=== PATIENT | male | born 1965 | race Caucasian/White ===

== ENCOUNTER 2019-12-10 21:50 | Emergency (ER) | payer BC ==
[~2019-12-10] VITALS: Ht 182.9 cm; Wt 111.1 kg
[2019-12-10] MEDS ORDERED: SODIUM CHLORIDE 0.9% 1000ML 1,000 ML IV ONE (22:30)
[2019-12-10] MEDS ORDERED: CEFTRIAXONE SOD 1 GM/NS 50 ML 50 ML IV ONE (22:30)
[2019-12-10 22:42] LABS: BILIRUBIN,URINE NEGATIVE (NEGATIVE); CLARITY,URINE CLOUDY (CLEAR); COLOR,URINE YELLOW (YELLOW); KETONES,URINE NEGATIVE (NEGATIVE); LEUKOCYTE ESTERASE ,URINE SMALL (NEGATIVE); NITRITE,URINE POSITIVE (NEGATIVE); PROTEIN,URINE DIPSTICK NEGATIVE (NEGATIVE); URINE UROBILINOGEN 0.2 mg/dL (0.2 - 1)
[2019-12-10 22:47] LABS: BACTERIA,URINE MANY /HPF; EPITHELIAL CELLS,URINE FEW /LPF; RBC,URINE 0-5 /HPF (0-5); WBC,URINE (MAN) 21-50 /HPF (0-5)
[2019-12-10 22:56] LABS: BASOPHILS % 0.3 % (0.0-1.0); EOSINOPHILS % 0.2 % (0.0-6.0); HEMATOCRIT 41.8 % (38.2-49.6); HEMOGLOBIN 14.2 g/dL (14.0-18.0); LYMPHOCYTES # (AUTO) 1.6 (1.0-3.2); LYMPHOCYTES % 10.8 % (18.0-39.1); MEAN CORPUSCULAR HEMOGLOBIN 29.8 pg (28-32); MEAN CORPUSCULAR VOLUME 87.6 fL (81-99); MONOCYTES # (AUTO) 1.6 (0.2-0.8); MONOCYTES % 10.8 % (4.4-11.3); NEUTROPHILS # (AUTO) 11.6 (2.1-6.9); NEUTROPHILS % 77.6 % (38.7-80.0); PLATELET COUNT 185 x10e3/uL (140-360); RED BLOOD COUNT 4.77 x10e6/uL (4.3-5.7); RED CELL DISTRIBUTION WIDTH 13.2 % (11.7-14.4)
--- NOTE | 2019-12-10 23:04 | Emergency Department Note ---
History of Present Illnes History of Present Illness Chief Complaint: Genitourinary History of Present Illness This is a 54 year old male with left testicular pain since falling and landing on left testicle this am, pt also now with dysuria and had a temp at home of 101. pt told to come to er by dr betts for evaluation . Historian: Patient Arrival Mode: Car Onset (how long ago): hour(s) (12) Location: left testicle Quality: pain Severity: moderate Onset quality: sudden Duration (how long): hour(s) (12) Timing of current episode: constant Progression: worsening Chronicity: new Context: Reports trauma/injury (as above) Relieving factors: none Exacerbating factors: none Associated symptoms: Reports denies other symptoms Past Medical/Family History Physician Review I have reviewed the patient's past medical and family history. Any updates have been documented here. Past Medical History Recent Fever: No Clinical Suspicion of Infectio: No New/Unexplained Change in Ment: No Social History Smoking Cessation: Never Smoker Alcohol Use: None Any Illegal Drug Use: No Family History Family history of heart diseas: No Other Last Tetanus: UNK Review of Systems Review of Systems Constitutional: Reports no symptoms EENTM: Reports no symptoms Cardiovascular: Reports no symptoms Respiratory: Reports no symptoms Gastrointestinal: Reports no symptoms Genitourinary: Reports as per HPI Musculoskeletal: Reports no symptoms Integumentary: Reports no symptoms Neurological: Reports no symptoms Psychological: Reports no symptoms Endocrine: Reports no symptoms Hematological/Lymphatic: Reports no symptoms Physical Exam Related Data Allergies: Coded Allergies: No Known Allergies (Unverified , 04/06/13) Triage Vital Signs Vital Signs Date Time Temp Pulse Resp B/P (MAP) Pulse Ox O2 Delivery O2 Flow Rate FiO2 12/10/19 22:15 99.6 104 20 165/84 97 Room Air Vital signs reviewed: Yes Physical Exam CONSTITUTIONAL Constitutional: Present well-developed, Present well-nourished; Absent distressed HENT HENT: Present normocephalic, Present atraumatic, Present oropharynx clear/moist, Present nose normal HENT L/R: Present left ext ear normal, Present right ext ear normal EYES Eyes: Reports PERRL, Reports conjunctivae normal NECK Neck: Present ROM normal PULMONARY Pulmonary: Present effort normal, Present breath sounds normal CARDIOVASCULAR Cardiovascular: Present regular rhythm, Present heart sounds normal, Present capillary refill normal, Present normal rate GASTROINTESTINAL Abdominal: Present soft, Present nontender, Present bowel sounds normal GENITOURINARY Genitourinary: Present penis normal, Present other (left tesicle tenderness, erythema to scrotum) SKIN Skin: Present warm, Present dry MUSCULOSKELETAL Musculoskeletal: Present ROM normal NEUROLOGICAL Neurological: Present alert, Present oriented x 3, Present no gross motor or sensory deficits PSYCHOLOGICAL Psychological: Present mood/affect normal, Present judgement normal Results Laboratory Laboratory Laboratory Tests Test 12/10/19 22:36 12/10/19 22:15 White Blood Count 14.90 x10e3/uL (4.8-10.8) Red Blood Count 4.77 x10e6/uL (4.3-5.7) Hemoglobin 14.2 g/dL (14.0-18.0) Hematocrit 41.8 % (38.2-49.6) Mean Corpuscular Volume 87.6 fL (81-99) Mean Corpuscular Hemoglobin 29.8 pg (28-32) Mean Corpuscular Hemoglobin Concent 34.0 g/dL (31-35) Red Cell Distribution Width 13.2 % (11.7-14.4) Platelet Count 185 x10e3/uL (140-360) Neutrophils (%) (Auto) 77.6 % (38.7-80.0) Lymphocytes (%) (Auto) 10.8 % (18.0-39.1) Monocytes (%) (Auto) 10.8 % (4.4-11.3) Eosinophils (%) (Auto) 0.2 % (0.0-6.0) Basophils (%) (Auto) 0.3 % (0.0-1.0) Neutrophils # (Auto) 11.6 (2.1-6.9) Lymphocytes # (Auto) 1.6 (1.0-3.2) Monocytes # (Auto) 1.6 (0.2-0.8) Eosinophils # (Auto) 0.0 (0.0-0.4) Basophils # (Auto) 0.0 (0.0-0.1) Absolute Immature Granulocyte (auto 0.04 x10e3/uL (0-0.1) Sodium Level 139 mmol/L (136-145) Potassium Level 4.0 mmol/L (3.5-5.1) Chloride Level 104 mmol/L (98-107) Carbon Dioxide Level 25 mmol/L (22-29) Anion Gap 14.0 mmol/L (8-16) Blood Urea Nitrogen 18 mg/dL (7-26) Creatinine 1.13 mg/dL (0.72-1.25) Estimat Glomerular Filtration Rate > 60 ML/MIN (60-) BUN/Creatinine Ratio 16 (6-25) Glucose Level 112 mg/dL (74-118) Lactic Acid Level 1.4 mmol/L (0.5-2.0) Calcium Level 9.1 mg/dL (8.4-10.2) Total Bilirubin 0.8 mg/dL (0.2-1.2) Aspartate Amino Transf (AST/SGOT) 17 IU/L (5-34) Alanine Aminotransferase (ALT/SGPT) 12 IU/L (0-55) Alkaline Phosphatase 60 IU/L (40-150) Total Protein 6.8 g/dL (6.5-8.1) Albumin 3.8 g/dL (3.5-5.0) Globulin 3.0 g/dL (2.3-3.5) Albumin/Globulin Ratio 1.3 (0.8-2.0) Urine Color Yellow (YELLOW) Urine Clarity Cloudy (CLEAR) Urine pH 7.5 (5 - 7) Urine Specific [place] 1.025 (1.010-1.025) Urine Protein Negative (NEGATIVE) Urine Glucose (UA) Negative (NEGATIVE) Urine Ketones Negative (NEGATIVE) Urine Blood Negative (NEGATIVE) Urine Nitrite Positive (NEGATIVE) Urine Bilirubin Negative (NEGATIVE) Urine Urobilinogen 0.2 mg/dL (0.2 - 1) Urine Leukocyte Esterase Small (NEGATIVE) Urine RBC 0-5 /HPF (0-5) Urine WBC 21-50 /HPF (0-5) Urine Epithelial Cells Few /LPF (NONE) Urine Bacteria Many /HPF (NONE) Laboratory Tests Test 12/10/19 22:36 12/10/19 22:15 Urine Color Yellow (YELLOW) Urine Clarity Cloudy (CLEAR) Urine pH 7.5 (5 - 7) Urine Specific [place] 1.025 (1.010-1.025) Urine Protein Negative (NEGATIVE) Urine Glucose (UA) Negative (NEGATIVE) Urine Ketones Negative (NEGATIVE) Urine Blood Negative (NEGATIVE) Urine Nitrite Positive (NEGATIVE) Urine Bilirubin Negative (NEGATIVE) Urine Urobilinogen 0.2 mg/dL (0.2 - 1) Urine Leukocyte Esterase Small (NEGATIVE) Urine RBC 0-5 /HPF (0-5) Urine WBC 21-50 /HPF (0-5) Urine Epithelial Cells Few /LPF (NONE) Urine Bacteria Many /HPF (NONE) Lab results reviewed: Yes Imaging Imaging results reviewed: Yes Impressions Procedure: [id number] CT/CT ABDOMEN/PELVIS WOW Exam Date: Exam Time: REPORT STATUS: Signed EXAM: CT Abdomen and Pelvis WITHOUT and WITH contrast INDICATION: dysuria, scrotal pain, go all the way to bottom of scrotum COMPARISON: CT 04/06/2013.. TECHNIQUE: Abdomen and pelvis were scanned utilizing a multidetector helical scanner from the lung base to the pubic symphysis before and after administration of IV contrast. Coronal and sagittal reformations were obtained. Routine protocol was performed. Pre and postcontrast imaging was performed. IV CONTRAST: 150 mL of Omnipaque 300 ORAL CONTRAST: None COMPLICATIONS: None FINDINGS: LINES and TUBES: None. LOWER THORAX: Unremarkable HEPATOBILIARY: There is a too small to characterize hypodensity in the right lobe, likely benign. No biliary ductal dilation. GALLBLADDER: No radio-opaque stones or sludge. No wall thickening. SPLEEN: No splenomegaly. PANCREAS: No focal masses or ductal dilatation. ADRENALS: No adrenal nodules KIDNEYS/URETERS: Kidneys enhance symmetrically. No hydronephrosis. No cystic or solid mass lesions. No stones. GI TRACT: No abnormal distention, wall thickening, or evidence of bowel obstruction. Appendix is normal. PELVIC ORGANS/BLADDER: No evidence of hematoma or contrast extravasation when comparing pre and postcontrast imaging. No intrascrotal gas. Small left hydrocele. Serpiginous vessels, which are likely partially imaged on study from 2013, possible left varicocele. Limited evaluation of the testicles. LYMPH NODES: No lymphadenopathy. VESSELS: Unremarkable. PERITONEUM / RETROPERITONEUM: No free air or fluid. BONES: Unremarkable. SOFT TISSUES: 2.8 x 3.6 x 5.0 cm cystic lesion in the subcutaneous fat of the midline back abutting the skin surface at the level of L1. IMPRESSION: 1. CT has limited sensitivity for scrotal pathology. Limited evaluation of the testicles. No evidence of hematoma or contrast extravasation when comparing pre and postcontrast imaging. No intrascrotal gas. Small left hydrocele. Consider testicular ultrasound for further evaluation if clinically warranted. 2. 5.0 cm subdermal cystic lesion at the midline back at the level of L1. Indeterminate lesion, possible sebaceous cyst. Correlate with physical exam. Signed by: Lenard Lee MD on 12/11/2019 12:32 AM Dictated By: LENARD LEE MD Transcribed By: DAMIAN on 12/11/1931 COPY TO: BRIDGET NORTON MD~ Assessment & Plan Medical Decision Making MDM pt with fever, dysuria and left testicle injury this am cbc, cmp ua, lactic acid, ct abd/pelvis, blood culture, urine culture, ordered to eval for sepsis, uti, pyelonephritis, fractured testicle, scrotal abscess, scrotal cellulitis, Reassessment Reassessment time: 01:00 Reassessment went over lab and ct results with pt., pt wants to be discharged home and follow up with dr betts in office i spoke with dr betts, pt needs to call office and make appointment next week Assessment & Plan Final Impression: (1) UTI (urinary tract infection) (2) Contusion of testicle Depart Disposition: HOME, SELF-CARE Last Vital Signs Date Time Temp Pulse Resp B/P (MAP) Pulse Ox O2 Delivery O2 Flow Rate FiO2 12/10/19 22:15 99.6 104 20 165/84 97 Room Air Medications in the ED Ceftriaxone Sodium 50 ml @ 100 mls/hr ONCE ONCE IV Last administered on 12/10/19at 22:48; Admin Dose 100 MLS/HR; Start 12/10/19 at 22:30; Stop 12/10/19 at 22:59 Sodium Chloride 1,000 ml @ 999 mls/hr Q1H1M ONCE IV Last administered on 12/10/19at 22:48; Admin Dose 999 MLS/HR; Start 12/10/19 at 22:30; Stop 12/10/19 at 23:30 BRIDGET NORTON MD Dec 10, 2019 23:04
[2019-12-10 23:12] LABS: ALANINE AMINOTRANSFERASE 12 IU/L (0-55); ALBUMIN 3.8 g/dL (3.5-5.0); ALBUMIN/GLOBULIN RATIO 1.3 (0.8-2.0); ALKALINE PHOSPHATASE 60 IU/L (40-150); BLOOD UREA NITROGEN 18 mg/dL (7-26); BUN/CREATININE RATIO 16 (6-25); CALCIUM 9.1 mg/dL (8.4-10.2); CARBON DIOXIDE 25 mmol/L (22-29); CHLORIDE 104 mmol/L (98-107); CREATININE, SERUM 1.13 mg/dL (0.72-1.25); EST GLOMERULAR FILTRATION RATE > 60 ML/MIN (60-); GLUCOSE 112 mg/dL (74-118); SODIUM 139 mmol/L (136-145)
[2019-12-11] MEDS ORDERED: SODIUM CHLORIDE 0.9% 50ML 50 ML ONE (00:03)
[2019-12-11] MEDS ORDERED: IOPAMIDOL 370 MG/ML 200 ML INFUS..BTL INJ ONE (00:03)
--- NOTE | 2019-12-11 00:35 | Diagnostic Imaging Report ---
EXAM: CT Abdomen and Pelvis WITHOUT and WITH contrast INDICATION: dysuria, scrotal pain, go all the way to bottom of scrotum COMPARISON: CT 04/06/2013.. TECHNIQUE: Abdomen and pelvis were scanned utilizing a multidetector helical scanner from the lung base to the pubic symphysis before and after administration of IV contrast. Coronal and sagittal reformations were obtained. Routine protocol was performed. Pre and postcontrast imaging was performed. IV CONTRAST: 150 mL of Omnipaque 300 ORAL CONTRAST: None COMPLICATIONS: None FINDINGS: LINES and TUBES: None. LOWER THORAX: Unremarkable HEPATOBILIARY: There is a too small to characterize hypodensity in the right lobe, likely benign. No biliary ductal dilation. GALLBLADDER: No radio-opaque stones or sludge. No wall thickening. SPLEEN: No splenomegaly. PANCREAS: No focal masses or ductal dilatation. ADRENALS: No adrenal nodules KIDNEYS/URETERS: Kidneys enhance symmetrically. No hydronephrosis. No cystic or solid mass lesions. No stones. GI TRACT: No abnormal distention, wall thickening, or evidence of bowel obstruction. Appendix is normal. PELVIC ORGANS/BLADDER: No evidence of hematoma or contrast extravasation when comparing pre and postcontrast imaging. No intrascrotal gas. Small left hydrocele. Serpiginous vessels, which are likely partially imaged on study from 2013, possible left varicocele. Limited evaluation of the testicles. LYMPH NODES: No lymphadenopathy. VESSELS: Unremarkable. PERITONEUM / RETROPERITONEUM: No free air or fluid. BONES: Unremarkable. SOFT TISSUES: 2.8 x 3.6 x 5.0 cm cystic lesion in the subcutaneous fat of the midline back abutting the skin surface at the level of L1. IMPRESSION: 1. CT has limited sensitivity for scrotal pathology. Limited evaluation of the testicles. No evidence of hematoma or contrast extravasation when comparing pre and postcontrast imaging. No intrascrotal gas. Small left hydrocele. Consider testicular ultrasound for further evaluation if clinically warranted. 2. 5.0 cm subdermal cystic lesion at the midline back at the level of L1. Indeterminate lesion, possible sebaceous cyst. Correlate with physical exam. Signed by: Paolo Trinidad MD on 12/11/2019 12:32 AM
== END 2019-12-11 01:17 | disposition home or self-care (01) ==
LOC: ER 22:56
DX: N50.812 Left testicular pain (principal); S30.22XA Contusion of scrotum and testes, initial encounter; W18.30XA Fall on same level, unspecified, initial encounter; R30.0 Dysuria; N39.0 Urinary tract infection, site not specified
CPT/HCPCS: 36415; 80053; 81001; 83605; 85025; 87040; 87086; 99284; J0696; J7030; Q9967; 74178